=== PATIENT | male | born 1955 | race Caucasian/White ===

== ENCOUNTER → 2016-05-08 | Outpatient (CLI) | payer OTHER ==
[~2016-05-08] VITALS: Ht 167.6 cm; Wt 66.5 kg
[~2016-05-08] MED LIST: ACET-784 PO; AMLO-511 PO; B&C/1TAB3 PO; CHOL2000 PO; CINA30 PO; CLON.1 PO; GATI2.5D OP; LANT500 PO; LIDO5CRE18 TP; LINA5TAB PO; METO100T5 PO; OMEP10 PO; PHOSLOC PO; PREDAOS OP; SIMV-260 PO
[2016-05-08 09:50] VITALS: BP 160/76
== END | disposition home or self-care (01) ==
LOC: SRCNTR 09:44
PROVIDERS: ATTEND Internal Medicine Cardiovascular Disease
DX: I12.0 Hypertensive chronic kidney disease with stage 5 chronic kidney disease or end stage renal disease (principal); N18.6 End stage renal disease; I48.0 Paroxysmal atrial fibrillation; I25.10 Atherosclerotic heart disease of native coronary artery without angina pectoris; E11.9 Type 2 diabetes mellitus without complications; E78.5 Hyperlipidemia, unspecified; Z99.2 Dependence on renal dialysis; Z86.73 Personal history of transient ischemic attack (TIA), and cerebral infarction without residual deficits; Z95.0 Presence of cardiac pacemaker
CPT/HCPCS: G0463

== ENCOUNTER → 2016-05-10 | Outpatient (CLI) | payer OTHER ==
[~2016-05-10] VITALS: Ht 165.1 cm; Wt 66.5 kg
[2016-05-10 11:26] VITALS: BP 170/61
== END | disposition home or self-care (01) ==
LOC: SRCNTR 11:17
PROVIDERS: ATTEND Internal Medicine Cardiovascular Disease
DX: Z45.018 Encounter for adjustment and management of other part of cardiac pacemaker (principal)
CPT/HCPCS: G0463

== ENCOUNTER → 2016-11-06 | Outpatient (CLI) | payer OTHER ==
[~2016-11-06] VITALS: Ht 165.1 cm; Wt 65.0 kg
[~2016-11-06] MED LIST changes: +CLON.3 PO; +HYDR100T28 PO
[2016-11-06 09:59] VITALS: BP 173/83
== END | disposition home or self-care (01) ==
LOC: SRCNTR 09:31
PROVIDERS: ATTEND Internal Medicine Cardiovascular Disease
DX: I12.0 Hypertensive chronic kidney disease with stage 5 chronic kidney disease or end stage renal disease (principal); E11.22 Type 2 diabetes mellitus with diabetic chronic kidney disease; N18.6 End stage renal disease; E78.5 Hyperlipidemia, unspecified; I25.10 Atherosclerotic heart disease of native coronary artery without angina pectoris; I48.0 Paroxysmal atrial fibrillation; Z86.73 Personal history of transient ischemic attack (TIA), and cerebral infarction without residual deficits; Z99.2 Dependence on renal dialysis; Z95.0 Presence of cardiac pacemaker
CPT/HCPCS: 93005; G0463

== ENCOUNTER → 2016-11-22 | Outpatient (CLI) | payer OTHER ==
[~2016-11-22] VITALS: Ht 165.1 cm; Wt 65.0 kg
[~2016-11-22] MED LIST changes: -CLON.1 PO; +VALS320T13 PO
[2016-11-22 09:54] VITALS: BP 140/83
== END | disposition home or self-care (01) ==
LOC: SRCNTR 09:25
PROVIDERS: ATTEND Internal Medicine Cardiovascular Disease
DX: E11.22 Type 2 diabetes mellitus with diabetic chronic kidney disease (principal); I12.0 Hypertensive chronic kidney disease with stage 5 chronic kidney disease or end stage renal disease; N18.6 End stage renal disease; I48.0 Paroxysmal atrial fibrillation; I25.10 Atherosclerotic heart disease of native coronary artery without angina pectoris; Z86.73 Personal history of transient ischemic attack (TIA), and cerebral infarction without residual deficits; Z99.2 Dependence on renal dialysis; Z95.0 Presence of cardiac pacemaker
CPT/HCPCS: G0463

== ENCOUNTER → 2016-11-27 | Outpatient (CLI) | payer OTHER | END | disposition home or self-care (01) | LOC: RADPV 07:52 | PROVIDERS: ATTEND Internal Medicine Cardiovascular Disease | DX: I08.3 Combined rheumatic disorders of mitral, aortic and tricuspid valves (principal) | CPT/HCPCS: 93306 ==

== ENCOUNTER → 2016-12-04 | Outpatient (CLI) | payer OTHER ==
[~2016-12-04] VITALS: Ht 165.1 cm; Wt 65.0 kg
[2016-12-04 09:54] VITALS: BP 135/56
== END | disposition home or self-care (01) ==
LOC: SRCNTR 09:52
PROVIDERS: ATTEND Internal Medicine Cardiovascular Disease
DX: Z45.018 Encounter for adjustment and management of other part of cardiac pacemaker (principal)
CPT/HCPCS: G0463

== ENCOUNTER → 2017-01-08 | Outpatient (CLI) | payer OTHER ==
[~2017-01-08] VITALS: Ht 165.1 cm; Wt 62.5 kg
[~2017-01-08] MED LIST changes: +METO100T14 PO; -METO100T5 PO
[2017-01-08 09:50] VITALS: BP 171/68
== END | disposition home or self-care (01) ==
LOC: SRCNTR 09:43
PROVIDERS: ATTEND Internal Medicine Cardiovascular Disease
DX: I12.0 Hypertensive chronic kidney disease with stage 5 chronic kidney disease or end stage renal disease (principal); E11.22 Type 2 diabetes mellitus with diabetic chronic kidney disease; N18.6 End stage renal disease; I48.0 Paroxysmal atrial fibrillation; I63.9 Cerebral infarction, unspecified; I25.10 Atherosclerotic heart disease of native coronary artery without angina pectoris; E78.5 Hyperlipidemia, unspecified; Z95.0 Presence of cardiac pacemaker; Z86.73 Personal history of transient ischemic attack (TIA), and cerebral infarction without residual deficits; Z99.2 Dependence on renal dialysis
CPT/HCPCS: G0463

== ENCOUNTER 2017-08-03 08:53 | Inpatient (IN) | payer OTHER ==
[~2017-08-03] VITALS: Ht 162.6 cm; Wt 70.2 kg
[~2017-08-03 08:53] MED LIST changes: -VALS320T13 PO; +VALS320T16 PO
[2017-08-03 10:09] LABS: BASOPHILS % (AUTO) 2.5 % (0.0-2.0); EOSINOPHILS % (AUTO) 1.8 % (1.0-6.0); HEMATOCRIT 35.2 % (41-53); HEMOGLOBIN 11.8 g/dL (13.5-17.5); LYMPHOCYTES % (AUTO) 14.3 % (22.0-44.0); MEAN CORPUSCULAR HEMOGLOBIN 27.9 pg (26.0-34.0); MEAN CORPUSCULAR HGB CONC 33.5 G/dL (31.0-37.0); MEAN CORPUSCULAR VOLUME 83 fL (80-100); MONOCYTES # (AUTO) 0.7 K/uL (0.1-1.0); MONOCYTES % (AUTO) 9.9 % (2.0-9.0); NEUTROPHILS # (AUTO) 5.1 K/uL (1.8-7.7); NEUTROPHILS % (AUTO) 71.5 % (40.0-70.0); PLATELET COUNT (AUTO) 164 K/uL (150-450); RED BLOOD CELL COUNT(AUTO) 4.23 MIL/uL (4.50-5.90); RED CELL DISTRIBUTION WIDTH 14.8 % (11.5-14.5)
[2017-08-03] MEDS ORDERED: PIPERACILLIN/TAZO 3.375 GM/D5W 50 ML IV ONE (10:15)
[2017-08-03 10:16] LABS: ANION GAP 6 mmol/L (8-16); CALCIUM, TOTAL 8.3 mg/dL (8.8-10.5); CARBON DIOXIDE 34 mmol/L (22-29); CHLORIDE 94 mmol/L (98-107); CREATININE 5.18 mg/dL (0.60-1.30); GLOMERULAR FILTR. RATE CALC 11 mL/min (>60); GLUCOSE,RANDOM 195 mg/dL (70-110); POTASSIUM 4.1 mmol/L (3.5-5.1); SODIUM SERUM 134 mmol/L (136-145); UREA NITROGEN, BLOOD 41 mg/dL (7-18)
[2017-08-03 10:22] LABS: ALANINE AMINOTRANSFERASE 24 U/L (12-78); ALBUMIN 3.4 g/dL (3.4-5.0); ALKALINE PHOSPHATASE 589 U/L (46-116); ASPARTATE AMINOTRANSFERASE 34 U/L (15-37); BILIRUBIN,TOTAL 1.4 mg/dL (0.1-1.0); LIPASE 274 U/L (73-393); TOTAL PROTEIN, SERUM 8.6 g/dL (6.4-8.2)
[2017-08-03 10:46] LABS: B-TYPE NATRIURETIC PEPTIDE > 5000 pg/mL (0-100)
[2017-08-03] MEDS ORDERED: ONDANSETRON HCL 4 MG/2 ML VIAL IVP PRN (11:45)
[2017-08-03] MEDS ORDERED: VANCOMYCIN HCL 1 GM/D5% WATER 200 ML IV ONE (11:45)
[2017-08-03] MEDS ORDERED: 0.9% SODIUM CHLORIDE 10 ML SYRINGE IVP PRN (11:45)
[2017-08-03 12:03] VITALS: BP 140/65
[2017-08-03 12:33] LABS: GLUCOMETER DEV NAME(LOC) 6N 2D; GLUCOSE,POINT OF CARE 178 MG/DL (70-110)
[2017-08-03 13:32] LABS: C-REACTIVE PROTEIN QUANT 2.87 mg/dL (0.00-0.30)
[2017-08-03 14:11] LABS: ERYTHROCYTE SEDIMENTATION RATE 25 MM/HR (0-15)
[2017-08-03] MEDS ORDERED: SODIUM CHLORIDE 0.9% 500 ML IV ONE (15:05)
[2017-08-03 16:03] VITALS: BP 155/69
[2017-08-03] MEDS ORDERED: VANCOMYCIN HCL 1 GM/D5% WATER 200 ML IV SCH (17:00)
[2017-08-03] MEDS ORDERED: VANCOMYCIN HCL 1 GM/D5% WATER 200 ML IV PRN (17:30)
[2017-08-03] MEDS ORDERED: CALCIUM ACETATE 667 MG CAPSULE PO SCH (18:00)
[2017-08-03] MEDS: LANTHANUM CARBONATE 500 MG CHEW TABLET PO SCH (18:13)
[2017-08-03] MEDS: PIPERACILLIN SODIUM/TAZOBACTAM 2.25 GM in DEXTROSE 5%-WATER 50 ML IV SCH (18:14)
[2017-08-03 19:00] VITALS: BP 141/62
[2017-08-03] MEDS: METOPROLOL TARTRATE 50 MG TABLET PO SCH (20:25)
[2017-08-03] MEDS: HydrALAZINE HCL 50 MG TABLET PO SCH (20:25)
[2017-08-03] MEDS: SIMVASTATIN 20 MG TABLET PO SCH (20:25)
[2017-08-03] MEDS: GATIFLOXACIN 0.5% 2.5 ML OPHTHALMIC SOLUTION OS SCH (20:26)
[2017-08-03] MEDS: PrednisoLONE ACETATE 1% 5 ML OPHTHALMIC SUSPENSION OS SCH (20:26)
[2017-08-03] MEDS: AmLODIPine BESYLATE 5 MG TABLET PO SCH (20:30)
[2017-08-03 23:56] VITALS: BP 173/75
[2017-08-04] VITALS (7 sets, daily range): BP systolic 125–170; BP diastolic 61–84
[2017-08-04] MEDS: PIPERACILLIN SODIUM/TAZOBACTAM 2.25 GM in DEXTROSE 5%-WATER 50 ML IV SCH ×4 (02:40→18:00)
[2017-08-04] MEDS: LANTHANUM CARBONATE 500 MG CHEW TABLET PO SCH ×3 (07:30→16:40)
[2017-08-04] MEDS ORDERED: CINACALCET HCL 30 MG TABLET PO SCH (08:00)
[2017-08-04] MEDS: HydrALAZINE HCL 50 MG TABLET PO SCH ×2 (09:00→21:53)
[2017-08-04] MEDS: CHOLECALCIFEROL (VIT D3) 1,000 UNITS TABLET PO SCH (09:00)
[2017-08-04] MEDS: VITAMIN B COMP/VIT C/FOLIC ACID CAPSULE PO SCH (09:00)
[2017-08-04] MEDS: GATIFLOXACIN 0.5% 2.5 ML OPHTHALMIC SOLUTION OS SCH ×4 (09:00→21:55)
[2017-08-04] MEDS: VALSARTAN 160 MG TABLET PO SCH (09:00)
[2017-08-04] MEDS: PrednisoLONE ACETATE 1% 5 ML OPHTHALMIC SUSPENSION OS SCH ×4 (09:00→21:54)
[2017-08-04] MEDS: LinaGLIPtin 5 MG TABLET PO SCH (09:00)
[2017-08-04] MEDS: METOPROLOL TARTRATE 50 MG TABLET PO SCH ×2 (09:00→23:17)
[2017-08-04] MEDS: AmLODIPine BESYLATE 5 MG TABLET PO SCH ×2 (09:00→21:53)
[2017-08-04] MEDS: OMEPRAZOLE 20 MG CAPSULE PO SCH (09:00)
[2017-08-04 10:22] LABS: BASOPHILS % (AUTO) 2.1 % (0.0-2.0); EOSINOPHILS % (AUTO) 2.3 % (1.0-6.0); HEMATOCRIT 34.3 % (41-53); HEMOGLOBIN 11.7 g/dL (13.5-17.5); LYMPHOCYTES # (AUTO) 0.7 K/uL (1.0-4.8); LYMPHOCYTES % (AUTO) 10.9 % (22.0-44.0); MEAN CORPUSCULAR HEMOGLOBIN 28.2 pg (26.0-34.0); MEAN CORPUSCULAR HGB CONC 34.2 G/dL (31.0-37.0); MEAN CORPUSCULAR VOLUME 82 fL (80-100); MONOCYTES # (AUTO) 0.7 K/uL (0.1-1.0); MONOCYTES % (AUTO) 10.3 % (2.0-9.0); NEUTROPHILS % (AUTO) 74.4 % (40.0-70.0); PLATELET COUNT (AUTO) 134 K/uL (150-450); RED BLOOD CELL COUNT(AUTO) 4.16 MIL/uL (4.50-5.90); RED CELL DISTRIBUTION WIDTH 14.9 % (11.5-14.5)
[2017-08-04 10:33] LABS: CALCIUM, TOTAL 8.2 mg/dL (8.8-10.5); CREATININE 6.35 mg/dL (0.60-1.30); POTASSIUM 5.4 mmol/L (3.5-5.1)
[2017-08-04 10:40] LABS: ALBUMIN 2.9 g/dL (3.4-5.0); BILIRUBIN,TOTAL 1.5 mg/dL (0.1-1.0); TOTAL PROTEIN, SERUM 7.5 g/dL (6.4-8.2)
[2017-08-04 10:43] LABS: INR 1.1 (0.9-1.1); PROTHROMBIN TIME 11.7 SEC (9.4-11.6)
[2017-08-04] MEDS ORDERED: BUPIVACAINE HCL/PF 0.5% 30 ML VIAL ONE (11:35)
[2017-08-04] MEDS ORDERED: LIDOCAINE HCL/PF 1% 30 ML VIAL ONE (11:36)
[2017-08-04] MEDS ORDERED: SODIUM CHLORIDE 0.9% 500 ML IV ONE (11:48)
[2017-08-04] MEDS: CALCIUM ACETATE 667 MG CAPSULE PO SCH ×2 (12:00→18:00)
[2017-08-04] MEDS ORDERED: POVIDONE-IODINE 30 GM OINTMENT TP ONE (12:26)
[2017-08-04] MEDS ORDERED: FentaNYL CITRATE-PF 100 MCG/2 ML VIAL IVP PRN (12:30)
[2017-08-04] MEDS ORDERED: SODIUM CHLORIDE 0.9% 2,000 ML IV ONE (17:09)
[2017-08-04] MEDS: ACETAMINOPHEN 325 MG TABLET PO PRN (19:51)
[2017-08-04] MEDS: OXYGEN THERAPY IH SCH (20:00)
[2017-08-04] MEDS: SIMVASTATIN 20 MG TABLET PO SCH (21:53)
[2017-08-05] MEDS: PIPERACILLIN SODIUM/TAZOBACTAM 2.25 GM in DEXTROSE 5%-WATER 50 ML IV SCH ×3 (01:53→17:08)
[2017-08-05 05:29] VITALS: BP 174/79
[2017-08-05] MEDS ORDERED: FentaNYL CITRATE-PF 100 MCG/2 ML VIAL IVP ONE (05:57)
[2017-08-05 05:59] LABS: CALCIUM, TOTAL 8.4 mg/dL (8.8-10.5); CREATININE 4.97 mg/dL (0.60-1.30); POTASSIUM 5.3 mmol/L (3.5-5.1); VANCOMYCIN,RANDOM 13.7 mcg/mL (25.0-50.0)
[2017-08-05] MEDS: LANTHANUM CARBONATE 500 MG CHEW TABLET PO SCH ×3 (06:37→16:20)
[2017-08-05] MEDS: OXYGEN THERAPY IH SCH ×2 (08:00→20:00)
[2017-08-05] MEDS ORDERED: VANCOMYCIN HCL 750 MG in DEXTROSE 5%-WATER 250 ML IV SCH (08:00)
[2017-08-05 08:07] VITALS: BP 152/73
[2017-08-05] MEDS: CINACALCET HCL 30 MG TABLET PO SCH (08:31)
[2017-08-05] MEDS: CALCIUM ACETATE 667 MG CAPSULE PO SCH ×3 (08:31→17:08)
[2017-08-05] MEDS: HydrALAZINE HCL 50 MG TABLET PO SCH ×2 (08:32→20:34)
[2017-08-05] MEDS: PrednisoLONE ACETATE 1% 5 ML OPHTHALMIC SUSPENSION OS SCH ×4 (08:32→20:35)
[2017-08-05] MEDS: VITAMIN B COMP/VIT C/FOLIC ACID CAPSULE PO SCH (08:32)
[2017-08-05] MEDS: METOPROLOL TARTRATE 50 MG TABLET PO SCH ×2 (08:32→20:35)
[2017-08-05] MEDS: GATIFLOXACIN 0.5% 2.5 ML OPHTHALMIC SOLUTION OS SCH ×4 (08:32→20:36)
[2017-08-05] MEDS: LinaGLIPtin 5 MG TABLET PO SCH (08:33)
[2017-08-05] MEDS: AmLODIPine BESYLATE 5 MG TABLET PO SCH ×2 (08:33→22:15)
[2017-08-05] MEDS: CHOLECALCIFEROL (VIT D3) 1,000 UNITS TABLET PO SCH (08:33)
[2017-08-05] MEDS: OMEPRAZOLE 20 MG CAPSULE PO SCH (08:33)
[2017-08-05] MEDS: VALSARTAN 160 MG TABLET PO SCH (08:47)
[2017-08-05 11:04] VITALS: BP 155/78
[2017-08-05] MEDS: ACETAMINOPHEN 325 MG TABLET PO PRN (11:53)
[2017-08-05 15:00] VITALS: BP 148/78
[2017-08-05 19:58] VITALS: BP 145/65
[2017-08-05] MEDS: SIMVASTATIN 20 MG TABLET PO SCH (20:35)
[2017-08-05 23:15] VITALS: BP 147/74
[2017-08-06] MEDS: PIPERACILLIN SODIUM/TAZOBACTAM 2.25 GM in DEXTROSE 5%-WATER 50 ML IV SCH ×2 (01:29→09:38)
[2017-08-06 03:37] VITALS: BP 144/68
[2017-08-06] MEDS: LANTHANUM CARBONATE 500 MG CHEW TABLET PO SCH ×2 (06:04→12:42)
[2017-08-06 06:22] LABS: CALCIUM, TOTAL 8.6 mg/dL (8.8-10.5); CREATININE 6.33 mg/dL (0.60-1.30); POTASSIUM 5.7 mmol/L (3.5-5.1)
[2017-08-06 07:06] VITALS: BP 149/75
[2017-08-06] MEDS: OXYGEN THERAPY IH SCH (07:57)
[2017-08-06] MEDS: GATIFLOXACIN 0.5% 2.5 ML OPHTHALMIC SOLUTION OS SCH ×2 (08:05→12:42)
[2017-08-06] MEDS: CALCIUM ACETATE 667 MG CAPSULE PO SCH ×2 (08:05→12:42)
[2017-08-06] MEDS: METOPROLOL TARTRATE 50 MG TABLET PO SCH (08:05)
[2017-08-06] MEDS: PrednisoLONE ACETATE 1% 5 ML OPHTHALMIC SUSPENSION OS SCH ×2 (08:05→12:42)
[2017-08-06] MEDS: CINACALCET HCL 30 MG TABLET PO SCH (08:05)
[2017-08-06] MEDS: VITAMIN B COMP/VIT C/FOLIC ACID CAPSULE PO SCH (08:05)
[2017-08-06] MEDS: LinaGLIPtin 5 MG TABLET PO SCH (08:06)
[2017-08-06] MEDS: AmLODIPine BESYLATE 5 MG TABLET PO SCH (08:06)
[2017-08-06] MEDS: CHOLECALCIFEROL (VIT D3) 1,000 UNITS TABLET PO SCH (08:06)
[2017-08-06] MEDS: VALSARTAN 160 MG TABLET PO SCH (08:06)
[2017-08-06] MEDS: OMEPRAZOLE 20 MG CAPSULE PO SCH (08:06)
[2017-08-06] MEDS: HydrALAZINE HCL 50 MG TABLET PO SCH (08:07)
[2017-08-06] MEDS ORDERED: SULF1TAB42 PO (10:42)
[2017-08-06] MEDS ORDERED: SODIUM POLYSTYRENE SULFONATE 15 GM/60 ML SUSPENSION BOTTLE PO ONE (11:15)
[2017-08-06 12:00] VITALS: BP 121/57
[2017-08-06] MEDS ORDERED: LIDOCAINE HCL/PF 2% 5 ML VIAL IM ONE (15:22)
[2017-08-06] MEDS ORDERED: PROPOFOL 1% 20 ML VIAL IVP ONE (15:22)
== END 2017-08-06 15:23 | disposition home or self-care (01) | DRG 255 ==
LOC: EMS 08:54 → 6N 10:56
PROVIDERS: ADMIT Hospitalist; ATTEND Hospitalist
PROC: 0JBQ0ZZ Excision of Right Foot Subcutaneous Tissue and Fascia, Open Approach (ICD-10-PCS; 2017-08-03)
PROC: 0QBN0ZZ Excision of Right Metatarsal, Open Approach (ICD-10-PCS; 2017-08-04)
PROC: 5A1D70Z Performance of Urinary Filtration, Intermittent, Less than 6 Hours Per Day (ICD-10-PCS; 2017-08-04)
PROC: 0Y6R0Z0 Detachment at Right 2nd Toe, Complete, Open Approach (ICD-10-PCS; principal; 2017-08-04 12:00)
DX: E11.52 Type 2 diabetes mellitus with diabetic peripheral angiopathy with gangrene (principal); N18.6 End stage renal disease; I13.2 Hypertensive heart and chronic kidney disease with heart failure and with stage 5 chronic kidney disease, or end stage renal disease; E11.22 Type 2 diabetes mellitus with diabetic chronic kidney disease; E11.42 Type 2 diabetes mellitus with diabetic polyneuropathy; I70.261 Atherosclerosis of native arteries of extremities with gangrene, right leg; E83.39 Other disorders of phosphorus metabolism; M86.8X7 Other osteomyelitis, ankle and foot; I70.222 Atherosclerosis of native arteries of extremities with rest pain, left leg; N25.81 Secondary hyperparathyroidism of renal origin; E11.319 Type 2 diabetes mellitus with unspecified diabetic retinopathy without macular edema; I50.9 Heart failure, unspecified; D63.1 Anemia in chronic kidney disease; E11.621 Type 2 diabetes mellitus with foot ulcer; E11.69 Type 2 diabetes mellitus with other specified complication; E87.5 Hyperkalemia; H54.61 Unqualified visual loss, right eye, normal vision left eye; I87.2 Venous insufficiency (chronic) (peripheral); K21.9 Gastro-esophageal reflux disease without esophagitis; L97.519 Non-pressure chronic ulcer of other part of right foot with unspecified severity; E78.5 Hyperlipidemia, unspecified; Z82.49 Family history of ischemic heart disease and other diseases of the circulatory system; Z83.3 Family history of diabetes mellitus; Z86.74 Personal history of sudden cardiac arrest; Z99.2 Dependence on renal dialysis; Z89.411 Acquired absence of right great toe; Z89.421 Acquired absence of other right toe(s)
CPT/HCPCS: 83605; 85651; 86140; 87040; 87070; 87081; 87205; 87340; 88305; 88311; 90935; 93005; 96365; 99285; J2543; J2704; J3010; J3370; J3490; J7030; J7040; J7060